=== PATIENT | male | born 1990 | race Caucasian/White ===

== ENCOUNTER 2016-10-10 10:48 | Emergency (ER) | payer MEDICAID ==
[2016-10-10 11:04] VITALS: RESP 16; O2SAT 98
--- NOTE | 2016-10-10 11:26 | EDPHY ---
H & P Time Seen by Provider: 10/10/16 10:57 HPI/ROS: CHIEF COMPLAINT: body aches, cough, chest pain HISTORY OF PRESENT ILLNESS: The patient is a 25-year-old male who presents to the emergency department with multiple complaints. He states 2 days ago he developed chills, body aches and a cough. This is productive of yellow sputum. He has mild chest discomfort. This is bilateral and does not radiate. His chest feels tight. He also has leg aches and cramping. He describes bilateral calf cramping. He has had no recent travel. Patient denies sore throat, abdominal pain, nausea, vomiting or diarrhea. The patient states the homeless long-term last evening. 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 REVIEW OF SYSTEMS: My complete review of systems is negative except as mentioned in the HPI. Past Medical/Surgical History: Possibly hepatitis-C Social history: The patient smokes. He is currently attempting to stop using alcohol. Smoking Status: Current every day smoker Physical Exam: Vitals noted GENERAL: Well-appearing, in no acute distress, alert. HEENT: Eyes normal to inspection, normal pharynx, no signs of dehydration. NECK: No thyromegaly, no lymphadenopathy, supple. RESPIRATORY: Clear to auscultation bilaterally, no rales, rhonchi or wheezing. CVS: Regular rate and rhythm, no rubs, murmurs, or gallops. ABDOMEN: Soft, nontender, nondistended, no organomegaly. BACK: Normal to inspection, no CVA tenderness. SKIN: Normal color, no rash, warm, dry. No pallor. EXTREMITIES: No pedal edema, no calf tenderness, no Homans sign or cords, no joint swelling. NEURO/PSYCH: Alert and oriented x3, normal mood and affect, normal motor sensory exam. Constitutional: Initial Vital Signs Temperature (C) 36.9 C 10/10/16 11:00 Heart Rate 86 10/10/16 11:00 Respiratory Rate 16 10/10/16 11:00 Blood Pressure 142/67 H 10/10/16 11:00 O2 Sat (%) 98 10/10/16 11:00 O2 Delivery Mode Room Air Allergies/Adverse Reactions: cephalexin monohydrate [From Keflex] Allergy (Verified 10/10/16 11:04) Home Medications: Medication Instructions Recorded Azithromycin 250 mg PO DAILY #4 tablet 10/10/16 Medical Decision Making - Diagnostics EKG Interpretation: EKG shows normal sinus rhythm, normal rate, normal axis, normal intervals. There are no ST or T-wave abnormalities. EKG is normal as interpreted by me. ED Course/Re-evaluation: In the emergency department I discussed possible etiologies with the patient. I answered all his questions. Laboratory studies, chest x-ray, EKG and influenza swab were obtained. Chest x-ray: Early right lower lobe infiltrate. Please refer the dictated report. I reviewed the images. Laboratory studies were unremarkable. Flu swab negative. I discussed the results with the patient. I answered all his questions. He does not appear septic or toxic. He was given azithromycin 500 mg orally in the emergency department. He will be given a prescription for azithromycin x4 days. He was given warnings prior to leaving. He will return with worsening symptoms. Differential Diagnosis: My differential includes but is not limited to viral illness, bronchitis, pneumonia, influenza, ACS, acute MT, myocarditis, pericarditis, DVT, PE - Data Points Laboratory Results: Laboratory Results 10/10/16 11:10 10/10/16 11:10 10/10/16 10/10/16 11:30 11:10 WBC 8.65 10^3/uL (3.80-9.50) RBC 4.73 10^6/uL (4.40-6.38) Hgb 15.5 g/dL (13.7-17.5) Hct 44.5 % (40.0-51.0) MCV 94.1 fL (81.5-99.8) MCH 32.8 pg (27.9-34.1) MCHC 34.8 g/dL (32.4-36.7) RDW 12.8 % (11.5-15.2) Plt Count 184 10^3/uL (150-400) MPV 9.8 fL (8.7-11.7) Neut % (Auto) 64.6 % (39.3-74.2) Lymph % (Auto) 19.4 % (15.0-45.0) [place] % (Auto) 14.6 H % (4.5-13.0) Eos % (Auto) 0.6 % (0.6-7.6) Baso % (Auto) 0.2 L % (0.3-1.7) Nucleat RBC Rel Count 0.0 % (0.0-0.2) Absolute Neuts (auto) 5.59 10^3/uL (1.70-6.50) Absolute Lymphs (auto) 1.68 10^3/uL (1.00-3.00) Absolute Monos (auto) 1.26 H 10^3/uL (0.30-0.80) Absolute Eos (auto) 0.05 10^3/uL (0.03-0.40) Absolute Basos (auto) 0.02 10^3/uL (0.02-0.10) Absolute Nucleated RBC 0.00 10^3/uL (0-0.01) Immature Gran % 0.6 % (0.0-1.1) Immature Gran # 0.05 10^3/uL (0.00-0.10) D-Dimer < 0.27 ug/mLFEU (0.00-0.50) Sodium 140 mEq/L (134-144) Potassium 4.0 mEq/L (3.5-5.2) Chloride 104 mEq/L (97-110) Carbon Dioxide 25 mEq/l (22-31) Anion Gap 11 mEq/L (8-16) BUN 9 mg/dL (7-23) Creatinine 1.0 mg/dL (0.7-1.3) Estimated GFR > 60 Glucose 88 mg/dL (70-100) Calcium 9.4 mg/dL (8.5-10.4) Troponin I < 0.012 ng/mL (0-0.034) Influenza Typ A,B (DFA) NEGATIVE FOR FLU (NEGATIVE) Departure - Departure Disposition: Home, Routine, Self-Care Clinical Impression: Pneumonia Qualifiers: Pneumonia type: due to unspecified organism Laterality: right Lung location: lower lobe of lung Qualifier Code: (J18.1) Lobar pneumonia, unspecified organism Condition: Good Instructions: Bacterial Pneumonia (ED) Additional Instructions: Take your entire course of antibiotics. You have been given the 1st dose today. Return with increasing shortness of breath, cough, fever or any other concerns. Referrals: [facility] [Outside] - As per Instructions Prescriptions: Azithromycin 250 mg PO DAILY #4 tablet
--- NOTE | 2016-10-10 11:30 | CPEKG ---
Heart Rate: 63 RR Interval: 952 P-R Interval: 176 QRSD Interval: 100 QT Interval: 412 QTC Interval: 422 P Vinson: 33 QRS Vinson: 58 T Wave Vinson: 46 EKG Severity - NORMAL ECG - EKG Impression: SINUS RHYTHM Electronically Signed By: Vika Silva 10-Oct-2016 16:28:22
[2016-10-10 11:31] LABS: % IMMATURE GRANULYOCYTES 0.6 % (0.0-1.1); ABSOLUTE IMMATURE GRANULOCYTES 0.05 10^3/uL (0.00-0.10); ADD DIFF? NO; ADD MORPH? NO; ADD SCAN? NO; ATYPICAL LYMPHOCYTE FLAG 20 (0-99); FRAGMENT RBC FLAG 0 (0-99); HEMATOCRIT 44.5 % (40.0-51.0); HEMOGLOBIN 15.5 g/dL (13.7-17.5); LEFT SHIFT FLG 0 (0-99); LIPEMIA HEMOLYSIS FLAG 90 (0-99); MEAN CELL HEMOGLOBIN 32.8 pg (27.9-34.1); MEAN CELL HEMOGLOBIN CONCENTR. 34.8 g/dL (32.4-36.7); MEAN CELL VOLUME 94.1 fL (81.5-99.8); MEAN PLATELET VOLUME 9.8 fL (8.7-11.7); PLATELET CLUMPS FLAG 10 (0-99); PLATELET COUNT 184 10^3/uL (150-400); RED BLOOD CELL COUNT 4.73 10^6/uL (4.40-6.38); RED CELL DISTRIBUTION WIDTH 12.8 % (11.5-15.2)
[2016-10-10 11:42] LABS: ANION GAP 11 mEq/L (8-16); CALCIUM 9.4 mg/dL (8.5-10.4); CARBON DIOXIDE 25 mEq/l (22-31); CHLORIDE 104 mEq/L (97-110); GLOMERULAR FILTRATION RATE > 60; GLUCOSE 88 mg/dL (70-100); SODIUM 140 mEq/L (134-144)
--- NOTE | 2016-10-10 11:44 | DX ---
PA and lateral chest. Clinical History: dyspnea Comparison Study: None available. Findings: Patchy infiltrate superior segment right lower lobe suspicious for early pneumonia. Left magnolia ng is clear. Heart size is normal.. Visualized osseous structures appear normal. Impression: Suspect early right lower lobe pneumonia with involvement of the superior segment..
[2016-10-10 11:54] LABS: TROPONIN I < 0.012 ng/mL (0-0.034)
[2016-10-10] MEDS ORDERED: AZITHROMYCIN 250 MG TAB PO ONE (12:06)
[2016-10-10 12:41] VITALS: BP 138/81; PULSE 72; TEMP 99
== END 2016-10-10 13:17 | disposition home or self-care (01) ==
DX: J18.1 Lobar pneumonia, unspecified organism (principal); F17.200 Nicotine dependence, unspecified, uncomplicated